=== PATIENT | female | born 1990 | race Caucasian/White ===

== ENCOUNTER 2024-12-01 12:34 | Emergency (ER) | payer OTHER ==
[2024-12-01 12:50] VITALS: BMI 28.3
[2024-12-01] MEDS ORDERED: ACETAMINOPHEN INJECTION 100 ML ONE (13:26)
[2024-12-01] MEDS ORDERED: ONDANSETRON 4 MG/2 ML VIAL ONE (13:26)
[2024-12-01] MEDS: SODIUM CHLORIDE 1,000 ML IV STA (13:51)
[2024-12-01] MEDS: ACETAMINOPHEN 1000 MG/100 ML BAG IVPB ONE (13:51)
[2024-12-01] MEDS: ONDANSETRON 4 MG/2 ML VIAL IVPUSH ONE (13:52)
[2024-12-01 13:56] LABS: ABSOLUTE IMMATURE GRANULOCYTES 0.02 x10^3/uL (0.0-0.031); BASOPHILS # 0.02 x10^3/uL (0.01-0.08); EOSINOPHIL % 1.3 % (0.7-5.8); EOSINOPHILS # 0.09 x10^3/uL (0.04-0.36); HEMATOCRIT 40.3 % (34.1-44.9); HEMOGLOBIN 13.3 g/dL (11.2-15.7); MEAN CELL VOLUME 90.8 fl (79.4-94.8); MEAN PLT VOLUME 10.1 fl (9.4-12.3); PLATELET COUNT 159 x10^3/uL (182-369); RDW 11.3 % (12.1-16.8)
[2024-12-01 13:59] LABS: INR 1.17 (0.83-1.09); PROTHROMBIN TIME (PATIENT) 12.7 SEC (9.7-13.0)
[2024-12-01 14:21] LABS: POTASSIUM 4.5 mmol/L (3.5-5.1)
[2024-12-01 14:23] LABS: ALBUMIN 3.7 g/dl (3.4-5.0); BLOOD UREA NITROGEN 9.4 mg/dL (7-18); CALCIUM 9.6 mg/dL (8.5-10.1)
[2024-12-01 14:26] LABS: CREATININE 0.9 mg/dL (0.55-1.3)
[2024-12-01 14:27] LABS: BILIRUBIN,TOTAL 0.6 mg/dL (0.2-1); TOT PROT 7.7 g/dl (6.4-8.2)
[2024-12-01 15:01] VITALS: BP 116/60; PULSE 88; RESP 18; TEMP 98.7
== END 2024-12-01 15:29 | disposition home or self-care (01) ==
LOC: JER 12:34
PROC: 3E033NZ Introduction of Analgesics, Hypnotics, Sedatives into Peripheral Vein, Percutaneous Approach (ICD-10-PCS; principal; 2024-12-01)
PROC: 3E0337Z Introduction of Electrolytic and Water Balance Substance into Peripheral Vein, Percutaneous Approach (ICD-10-PCS; 2024-12-01)
DX: R50.9 Fever, unspecified (principal); B34.9 Viral infection, unspecified; R53.81 Other malaise; J02.9 Acute pharyngitis, unspecified; R00.2 Palpitations; R53.83 Other fatigue
CPT/HCPCS: 36415; 80053; 84436; 84443; 85025; 85610; 86850; 86900; 86901; 93005; 93010; 99284-25; J0131

== ENCOUNTER 2024-12-08 11:19 | Emergency (ER) | payer OTHER ==
[2024-12-08 11:25] VITALS: BMI 27.4
[2024-12-08] MEDS ORDERED: IBUPROFEN 400 MG TABLET (FP) PO ONE (12:33)
[2024-12-08] MEDS: SODIUM CHLORIDE 0.9% 500 ML INFUS.BAG IV ONE ×2 (12:40→14:18)
[2024-12-08] MEDS: IBUPROFEN 400 MG TABLET (FP) PO ONE (12:40)
[2024-12-08 12:43] LABS: ABSOLUTE IMMATURE GRANULOCYTES 0.14 x10^3/uL (0.0-0.031); BASOPHILS # 0.03 x10^3/uL (0.01-0.08); EOSINOPHIL % 3.2 % (0.7-5.8); EOSINOPHILS # 0.55 x10^3/uL (0.04-0.36); HEMATOCRIT 34.8 % (34.1-44.9); HEMOGLOBIN 11.8 g/dL (11.2-15.7); MCHC 33.9 g/dl (32.2-35.5); MEAN CELL VOLUME 89.5 fl (79.4-94.8); MEAN PLT VOLUME 10.1 fl (9.4-12.3); MONOCYTE # 0.99 x10^3/uL (0.24-0.86); MONOCYTE % 5.8 % (4.7-12.5); PLATELET COUNT 251 x10^3/uL (182-369); RDW 11.8 % (12.1-16.8)
[2024-12-08 12:47] LABS: EPI CELLS >36 /uL (0-25.1); HYALINE CASTS 9 /uL (0-3.1); URINE APPEARANCE CLEAR; URINE BACTERIA 507 /uL (0-1359); URINE BILIRUBIN NEGATIVE (NEGATIVE); URINE COLOR YELLOW; URINE GLUCOSE (UA) NEGATIVE (NEGATIVE); URINE KETONE TRACE (NEGATIVE); URINE LEUK ESTERASE NEGATIVE (NEGATIVE); URINE NITRITE NEGATIVE (NEGATIVE); URINE PROTEIN 2+ (NEGATIVE); URINE WBC 31 /uL (0-25.8)
[2024-12-08 12:51] LABS: INR 1.15 (0.83-1.09); PROTHROMBIN TIME (PATIENT) 12.6 SEC (9.7-13.0)
[2024-12-08 14:12] LABS: URINE RBC 25.7 /uL (0-23.9)
[2024-12-08 14:16] VITALS: BP 105/44; PULSE 107; RESP 19; TEMP 99
[2024-12-08 14:36] LABS: POTASSIUM 3.9 mmol/L (3.5-5.1)
[2024-12-08 14:37] LABS: CALCIUM 9.2 mg/dL (8.5-10.1)
[2024-12-08 14:38] LABS: BLOOD UREA NITROGEN 10.8 mg/dL (7-18)
[2024-12-08 14:42] LABS: BILIRUBIN,TOTAL 0.5 mg/dL (0.2-1)
[2024-12-08 14:43] LABS: ALBUMIN 2.8 g/dl (3.4-5.0); TOT PROT 6.8 g/dl (6.4-8.2)
== END 2024-12-08 17:33 | disposition home or self-care (01) ==
LOC: JER 11:19
DX: J90 Pleural effusion, not elsewhere classified (principal); R50.9 Fever, unspecified; R53.81 Other malaise; M79.10 Myalgia, unspecified site; M54.2 Cervicalgia; R06.02 Shortness of breath; R00.0 Tachycardia, unspecified; J39.2 Other diseases of pharynx
CPT/HCPCS: 0241U-QW; 36415; 71046-TC-FY; 71275-TC; 80053; 81003; 84439; 84443; 84703; 85025; 85379; 85610; 85730; 86308; 87040; 87086; 87207; 87651; 93005; 93010; 99285-25